=== PATIENT | female | born 1970 | race Two or more races ===

== ENCOUNTER → 2018-01-16 | Day surgery (SDC) | payer BC ==
[~2018-01-16] MED LIST: BUPROPION HCL150 M2 PO; CYMBALTA20 MG PO; FENTANYL CITRATE/PF 100MCG/2 ML INJ ONE; LIDOCAINE HCL 2% LOCAL INJ 5 ML SDV VIAL INJ ONE; MIDAZOLAM HCL 2 MG/2 ML VIAL ONE; PANTOPRAZOLE 40 MG 10ML VIAL ONE; PROPOFOL IV EMULSION 10 MG/ML 50 ML VIAL ONE; TRAZODONE HCL50 MG PO; VIT D PO
--- OUTSIDE RECORDS SUMMARY | 2018-01-16 08:50 | XMS REPORT | Clinical Summary ---
Author Author [facility] Address Unknown Phone Unavailable Care Team Providers Care Command [facility] Officer Name Role Phone Asked, Pcp PCP Unavailable Allergies No Known Allergies Current Medications Prescription Sig. Disp. Refills Start End Date Status Date nystatin-triamcinolone Apply topically 2 (two) 30 g 0 02/20/2002/19 Active (MYCOLOG II) 100,000-0.1 times a day. Apply on 17 18 unit/g-% cream affected area citalopram (CeleXA) 10 MG 0 04/25/20 Active tablet 17 ergocalciferol (VITAMIN 0 04/18/20 Active D2) 50,000 unit capsule 17 MELATONIN/PYRIDOXINE Take by mouth. Active (MELATONIN, WITH B6, ORAL) estradiol-norethindrone Place 1 patch on the skin 8 patch 11 05/20/20 05/20/20 Active acet (COMBIPATCH) 2 (two) times a week. 17 18 0.05-0.14 mg/24 hrIndications: Symptoms, such as flushing, sleeplessness, headache, lack of concentration, associated with the menopause ciprofloxacin HCl (CIPRO) Take 1 tablet (500 mg 14 tablet 0 02/23/20 03/01/20 500 MG tablet total) by mouth 2 (two) 17 17 times a day for 7 days. Active Problems No known active problems Encounters Date Type Specialty Care Team Description 06/04/2017 Telephone Obstetrics and Gynecology Felicity Aguila MD 05/20/2017 Telephone Obstetrics and Gynecology Felicity Aguila MD 05/20/2017 Orders Only Obstetrics and Gynecology Felicity Aguila Symptoms, such as [facility] flushing, sleeplessness, headache, lack of concentration, associated with the menopause (Primary Dx) 05/13/2017 Telephone Obstetrics and Gynecology Felicity Aguila MD 05/09/2017 Office Visit Obstetrics and Gynecology Felicity Aguila Insomnia, unspecified [facility] type (Primary Dx); Mood swings; Night sweats; Perimenopause 03/26/2017 [facility] Radiology Felicity Aguila Encounter [facility] 03/26/2017 [facility] Radiology Felicity Aguila Encounter [facility] 03/26/2017 [facility] Radiology Felicity Aguila Encounter [facility] 03/26/2017 Ancillary Radiology Felicity Aguila Orders [facility] 03/13/2017 [facility] Radiology Felicity Aguila Screening mammogram, Encounter [facility] encounter for 02/22/2017 Telephone Obstetrics and Gynecology Felicity Aguila MD 02/19/2017 Office Visit Obstetrics and Gynecology Felicity Aguila Encounter for [facility] gynecological examination with abnormal finding (Primary Dx); Screening mammogram, encounter for; Menstrual periods irregular; Weight gain; Vulvar itching after 01/15/2017 Family History Medical History Relation Name Comments Diabetes Father Hypertension Father Stroke Father Colon cancer Mother Relation Name Status Comments Father Mother Alive Social History Tobacco Use Types Packs/Day Years Used Date Never Smoker Alcohol Use Drinks/Week oz/Week Comments No Sex Assigned at Date Recorded Not on file Last Filed Vital Signs Vital Sign Reading Time Taken Blood Pressure 127/85 05/09/2017 11:11 AM CDT Pulse 76 05/09/2017 11:11 AM CDT Temperature 36.7 C (98 F) 05/09/2017 11:11 AM CDT Respiratory Rate - - Oxygen Saturation - - Inhaled Oxygen - - Concentration Weight 70.9 kg (156 lb 3.2 oz) 05/09/2017 11:11 AM CDT Height 165.1 cm (5' 5") 05/09/2017 11:11 AM CDT Body Mass Index 25.99 05/09/2017 11:11 AM CDT Plan of Treatment Health Maintenance Due Date Last Done Comments CERVICAL CANCER SCREENING 1993 INFLUENZA VACCINE 03/12/2018 Results * Thyroid Panel (05/09/2017 12:06 PM) Only the most recent of 2 results within the time period is included. Component Value Ref Range T3 uptake 28 22 - 35 % T4 8.6 4.5 - 12.0 mcg/dL Free T4 index 2.4 1.4 - 3.8 Specimen Performing [facility] * Thyroid stimulating hormone (05/09/2017 12:06 PM) Only the most recent of 2 results within the time period is included. Component Value Ref Range TSH 1.03 mIU/L Comment: Reference Range > or=20 Years 0.40-4.50 Ranges First trimester 0.26-2.66 Second trimester 0.55-2.73 Third trimester 0.43-2.91 Spec[facility]forming [facility] * Luteinizing hormone (05/09/2017 12:06 PM) Component Value Ref Range Luteinizing hormone 3.8 mIU/mL Comment: Reference Range Follicular Phase 1.9-12.5 Mid-Cycle Peak 8.7-76.3 Luteal Phase 0.5-16.9 Postmenopausal 10.0-54.7 Specimen Performing Laboratory [facility] * Follicle stimulating hormone (05/09/2017 12:06 PM) Only the most recent of 2 results within the time period is included. Component Value Ref Range Follicle stimulating 5.5 mIU/mL hormone Comment: Reference Range Follicular Phase 2.5-10.2 Mid-cycle Peak 3.1-17.7 Luteal Phase 1.5- 9.1 Postmenopausal 23.0-116.3 Specimen Performing [facility] * Mammo Screening w Cad Bilateral (03/13/2017 10:36 AM) Specimen Performing Laboratory [facility] [address] [place] [address] Addenda Addendum by Donavon Cross MD on 03/29/2017 3:02 PM ADDENDUM #1 Comparison is made to prior outside digital mammograms provided on CD from [facility] [address] [address] dated 02/18/2016, 01/12/2015, and 10/14/2013. There is no significant interval change from prior exams. No mammographic findings of malignancy. Recommend correlation with physical exam and annual screening mammography. BI-RADS 1: Negative Narrative PROCEDURE: MAMMO SCREENING W CAD BILATERAL Computer aided detection was utilized for the interpretation of the digital bilateral screening mammography. INDICATION:Routine screening. COMPARISON: This exam is interpreted without the benefit of prior mammograms for comparison. DENSITY: There are scattered areas of fibroglandular density. FINDINGS: There is no suspicious mass, microcalcification, or architectural distortion identified. IMPRESSION:No mammographic evidence of malignancy. RECOMMENDATION: Comparison with physical exam and annual screening mammography. If prior outside mammograms become available for comparison, an addendum will be provided. BI-RADS 1: NEGATIVE This facility is accredited by the [employer] for Mammography. A negative x-ray report should not delay biopsy if a dominant or clinically suspicious mass is present.Not all cancers are identified by x-ray. D[facility]01 Procedure Note Hm Interface, Radiology Results Incoming - 03/13/2017 11:39 AM CDT PROCEDURE: MAMMO SCREENING W CAD BILATERAL Computer aided detection was utilized for the interpretation of the digital bilateral screening mammography. INDICATION: Routine screening. COMPARISON: This exam is interpreted without the benefit of prior mammograms for comparison. DENSITY: There are scattered areas of fibroglandular density. FINDINGS: There is no suspicious mass, microcalcification, or architectural distortion identified. IMPRESSION: No mammographic evidence of malignancy. RECOMMENDATION: Comparison with physical exam and annual screening mammography. If prior outside mammograms become available for comparison, an addendum will be provided. BI-RADS 1: NEGATIVE This facility is accredited by the [employer] for Mammography. A negative x-ray report should not delay biopsy if a dominant or clinically suspicious mass is present. Not all cancers are identified by x-ray. [facility] * NON HDL CHOLESTEROL (REFLEX [facility]) (02/19/2017 11:45 AM) Component Value Ref Range Non-HDL cholesterol 144 mg/dL (calc) Comment: Target for non-HDL cholesterol is 30 mg/dL higher than LDL cholesterol target. Specimen Performing [facility] * CHOL/HDLC RATIO (REFLEX [facility]) (02/19/2017 11:45 AM) Component Value Ref Range Cholesterol/HDL ratio 2.4 < OR=5.0 (calc) Specimen Performing [facility] * LDL-CHOLESTEROL (REFLEX [facility]) (02/19/2017 11:45 AM) Component Value Ref Range LDL cholesterol 127 <130 mg/dL (calc) calculated Comment: Desirable range <100 mg/dL for patients with CHD or diabetes and <70 mg/dL for diabetic patients with known heart disease. Specimen Performing [facility] * URINALYSIS, COMPLETE, WITH REFLEX TO CULTURE (02/19/2017 11:45 AM) Component Value Ref Range Color, UA YELLOW YELLOW Appearance CLOUDY (A) CLEAR Specific gravity, urine 1.015 1.001 - 1.035 pH, urine 8.0 5.0 - 8.0 Glucose, urine NEGATIVE NEGATIVE Bilirubin, UA NEGATIVE NEGATIVE Ketones, UA NEGATIVE NEGATIVE Occult blood, urine NEGATIVE NEGATIVE Protein, UA NEGATIVE NEGATIVE Nitrite, UA NEGATIVE NEGATIVE Leukocyte esterase, UA 3+ (A) NEGATIVE WBC, UA 6-10 (A) < OR=5 /HPF RBC, UA NONE SEEN < OR=2 /HPF Squamous epithelial 0-5 < OR=5 /HPF cells, UA Bacteria, UA NONE SEEN NONE SEEN /HPF Hyaline casts, UA NONE SEEN NONE SEEN /LPF Specimen Performing [facility] * Urine culture screen result (02/19/2017 11:45 AM) Component Value Ref Range Reflex CULTURE INDICATED - RESULTS TO FOLLOW Specimen Performing [facility] * CBC with platelet and differential (02/19/2017 11:45 AM) Component Value Ref Range WBC 5.4 3.8 - 10.8 Thousand/uL RBC 4.24 3.80 - 5.10 Million/uL HGB 10.8 (L) 11.7 - 15.5 g/dL HCT 33.8 (L) 35.0 - 45.0 % MCV 79.8 (L) 80.0 - 100.0 fL MCH 25.5 (L) 27.0 - 33.0 pg MCHC 31.9 (L) 32.0 - 36.0 g/dL RDW 16.4 (H) 11.0 - 15.0 % Platelet count 164 140 - 400 Thousand/uL MPV 10.6 7.5 - 12.5 fL Neutrophils, absolute 3,532 1,500 - 7,800 cells/uL Lymphocytes, absolute 1,393 850 - 3,900 cells/uL Monocytes, absolute 410 200 - 950 cells/uL Eosinophils, absolute 49 15 - 500 cells/uL Basophils, absolute 16 0 - 200 cells/uL Neutrophils 65.4 % Lymphocytes 25.8 % Monocytes 7.6 % Eosinophils 0.9 % Basophils + RC 0.3 % Specimen Performing Laboratory [facility] * Urine culture (02/19/2017 11:45 AM) Component Value Ref Range Urine culture SEE NOTE (A) Comment: CULTURE, URINE, ROUTINE MICRO NUMBER: [id number] TEST STATUS: FINAL SPECIMEN SOURCE: URINE SPECIMEN QUALITY: ADEQUATE RESULT: 10,000-50,000 CFU/mL of Enterococcus faecalis COMMENT: Additional organism(s) less than 10,000 CFU/mL isolated. These organisms, commonly found on external and internal genitalia, are considered colonizers. No further testing performed. E.faecalis INT MORE AMPICILLIN S <2 CIPROFLOXACIN S <1 DAPTOMYCIN S 2 LEVOFLOXACIN S <1 NITROFURANTOIN S <32 VANCOMYCIN S 4 S=Susceptible I=Intermediate R=Resistant *=Not Tested NR=Not Reported NN=See Therapy Comments Specimen Performing [facility] * Triglycerides (02/19/2017 11:45 AM) Component Value Ref Range Triglycerides 86 <150 mg/dL Specimen Performing [facility] * HDL cholesterol (02/19/2017 11:45 AM) Component Value Ref Range HDL cholesterol 103 > OR=46 mg/dL Specimen Performing [facility] * Cholesterol (02/19/2017 11:45 AM) Component Value Ref Range Cholesterol, total 247 (H) 125 - 200 mg/dL Specimen Performing [facility] * Comprehensive metabolic panel (02/19/2017 11:45 AM) Component Value Ref Range Glucose 98 65 - 99 mg/dL Comment: Fasting reference interval BUN, whole blood 9 7 - 25 mg/dL Creatinine 0.47 (L) 0.50 - 1.10 mg/dL EGFR Non-Afr. Chinese 120 > OR=60 mL/min/1.73m2 EGFR 139 > OR=60 mL/min/1.73m2 BUN/creatinine ratio 19 6 - 22 (calc) Sodium 139 135 - 146 mmol/L Potassium 4.1 3.5 - 5.3 mmol/L Chloride 104 98 - 110 mmol/L CO2 29 20 - 31 mmol/L Calcium 8.9 8.6 - 10.2 mg/dL Protein 7.1 6.1 - 8.1 g/dL Albumin, S 4.2 3.6 - 5.1 g/dL Globulin, total 2.9 1.9 - 3.7 g/dL (calc) Albumin/globulin ratio 1.4 1.0 - 2.5 (calc) Total bilirubin 0.4 0.2 - 1.2 mg/dL Alkaline phosphatase 42 33 - 115 U/L AST 14 10 - 30 U/L ALT 13 6 - 29 U/L Specimen Performing Laboratory [facility] * HPV mRNA E6/E7 (02/19/2017 11:41 AM) Component Value Ref Range HPV mRNA e6/e7 Not Detected Not Detected Comment: This test was performed using the APTIMA HPV Assay ([employer] This assay detects E6/E7 viral messenger RNA (mRNA) from 14 high-risk HPV types (16,18,31,33,35,39,45,51,52,56,58,59,66,68). Specimen Performing Laboratory [facility] * THINPREP TIS PAP (02/19/2017 11:41 AM) Component Value Ref Range Clinical information None given Date of last menstrual 20,170,619 period Prev. pap: NONE GIVEN Prev. bx: NONE GIVEN Source Cervix Statement of adequacy Comment: Satisfactory for evaluation. Endocervical/transformation zone component present. Interpretation/result: Comment: Negative for intraepithelial lesion or malignancy. Comment Comment: This Pap test has been evaluated with computer assisted technology. Clinical Applications Manager Comment: [place], CT (ASCP) CT screening location: [address], [facility] [address] Specimen Performing Laboratory [facility] after 01/15/2017 Insurance Payer Benefit Subscriber ID Type Phone Address Plan / Group BCBS BCBS xxxxxxxxxxxx PPO CHOICE PPO/[place] [address]
--- NOTE | 2018-01-16 13:28 | Operative Report ---
DATE OF PROCEDURE: January 16, 2018 REFERRING PHYSICIAN: Dr. Rothman PROCEDURES PERFORMED 1. Esophagogastroduodenoscopy with biopsies. 2. Colonoscopy with polypectomy. INDICATIONS FOR EGD: Acid reflux. INDICATIONS FOR COLONOSCOPY: Colorectal cancer screening and mother with colon cancer. MEDICATION: Patient was done under MAC. Please see anesthesiologist's note. PROCEDURE: With the patient in the left lateral decubitus position, the flexible fiberoptic Olympus gastroscope was introduced into the esophagus under direct visualization without any difficulty. The esophagus appeared to be within normal limits. The scope was then advanced with ease into the stomach traversing a small sliding hiatal hernia. Mucosa overlying the antrum revealed some patchy erythema and mild to moderate edema, and biopsies were obtained and sent to stain for H. pylori. Mucosa overlying the body was somewhat atrophic and multiple biopsies were obtained to rule out atrophic gastritis. Pylorus appeared to be of normal contour and shape. It was intubated with ease. The scope was advanced all the way to the 2nd portion of the duodenum. The scope was then withdrawn slowly. Mucosa overlying the proximal 2nd portion and the duodenal bulb appeared to be within normal limits. The scope was then withdrawn back into the stomach and retroflexed. The mucosa overlying the fundus and the cardia appeared to be within normal limits. The scope was then straightened out. It was subsequently withdrawn. Patient tolerated the procedure well. IMPRESSION 1. Normal esophagus. 2. Small sliding hiatal hernia. 3. Gastritis, antrum, biopsied. Biopsies sent to stain for Helicobacter pylori. 4. Rule out atrophic gastritis, body. PLAN: Follow up histology. Initiate Protonix 40 mg 1 p.o. a.c. b.i.d. Patient was then turned around. After adequate lubrication of the anal canal, a flexible fiberoptic Olympus colonoscope was inserted into the rectum with ease and advanced all the way to the cecum. Mucosa overlying the cecum appeared to be within normal limits. One polyp was hot biopsied from the ascending colon. The transverse, descending, sigmoid, and rectum appeared to be within normal limits. The scope was then retroflexed into the distal rectum and small internal hemorrhoids were noted, none of which was actively bleeding. The scope was then straightened out. It was subsequently withdrawn. Patient tolerated the procedure well. IMPRESSION 1. Ascending colon polyp, hot biopsied. 2. Internal hemorrhoids, none actively bleeding. PLAN: Follow up histology. Initiate high-fiber and low-fat diet. Initiate high-fiber supplement. Patient might benefit from a followup colonoscopy in 3-5 years. Job#: [id number] [place] cc:MAISHA ROTHMAN MD
== END | disposition home or self-care (01) ==
LOC: OR 08:48
PROVIDERS: ATTEND Internal Medicine Gastroenterology
DX: Z12.11 Encounter for screening for malignant neoplasm of colon (principal); D12.2 Benign neoplasm of ascending colon; K29.50 Unspecified chronic gastritis without bleeding; K21.9 Gastro-esophageal reflux disease without esophagitis; K44.9 Diaphragmatic hernia without obstruction or gangrene; K31.89 Other diseases of stomach and duodenum; K64.8 Other hemorrhoids; F32.9 Major depressive disorder, single episode, unspecified; F41.9 Anxiety disorder, unspecified; Z80.0 Family history of malignant neoplasm of digestive organs
CPT/HCPCS: 43239; 45384; 81025; J2001; J2250

== ENCOUNTER → 2021-11-11 | Day surgery (SDC) | payer BC ==
[~2021-11-11] MED LIST changes: +COTEMPLA XR-O17.3 MG PO; +CYMBALTA30 MG PO; -PANTOPRAZOLE 40 MG 10ML VIAL ONE; -PROPOFOL IV EMULSION 10 MG/ML 50 ML VIAL ONE; +VRAYLAR1.5 MG PO
[2021-11-11 17:30] VITALS: BP 124/82
[2021-11-11 17:56] LABS: PROTHROMBIN TIME 14.1 seconds (11.9-14.5)
[2021-11-11 17:57] LABS: PARTIAL THROMBOPLASTIN TIME 29.7 seconds (23.8-35.5)
[2021-11-15 05:13] LABS: ENDOMYSIAL ANTIBODIES, IGA Negative (Negative)
== END | disposition home or self-care (01) ==
LOC: OR 12:36
PROVIDERS: ATTEND Internal Medicine Gastroenterology
DX: K21.9 Gastro-esophageal reflux disease without esophagitis (principal); Z86.010 Personal history of colon polyps; K31.7 Polyp of stomach and duodenum; K29.50 Unspecified chronic gastritis without bleeding; K31.89 Other diseases of stomach and duodenum; K59.00 Constipation, unspecified; K64.8 Other hemorrhoids; E78.5 Hyperlipidemia, unspecified; F41.9 Anxiety disorder, unspecified; F32.A Depression, unspecified; Z01.812 Encounter for preprocedural laboratory examination; Z20.822 Contact with and (suspected) exposure to COVID-19; Z79.899 Other long term (current) drug therapy; Z80.0 Family history of malignant neoplasm of digestive organs
CPT/HCPCS: 36415; 43239; 45378; 81025; 82607; 82784; 83516; 85610; 85730; 86256; C9113; J2001; J2250; J3010; U0002; 43255

== ENCOUNTER → 2025-05-01 | Day surgery (SDC) | payer BC ==
[~2025-05-01] MED LIST changes: +BUPROPION XL150 MG PO; +GLUCAGON FOR INJ 1 MG VIAL ONE; +HYOSCYAMINE SULFATE 0.5 MG/ML INJ ONE; +ONDANSETRON HCL INJ 2MG/ML 2ML 2 MG/ML VIAL ONE; +PROPOFOL IV EMULSION 50 ML IV ONE
[2025-05-01] MEDS: LACTATED RINGER'S 1,000 ML ONE (09:40)
[2025-05-01 12:35] VITALS: BP 132/87; PULSE 97; RESP 18; TEMP 97; O2SAT 98
== END | disposition home or self-care (01) ==
LOC: OR 08:57
PROVIDERS: ATTEND Internal Medicine Gastroenterology
DX: Z12.11 Encounter for screening for malignant neoplasm of colon (principal); D12.2 Benign neoplasm of ascending colon; K29.40 Chronic atrophic gastritis without bleeding; K31.A15 Gastric intestinal metaplasia without dysplasia, involving multiple sites; K20.90 Esophagitis, unspecified without bleeding; K44.9 Diaphragmatic hernia without obstruction or gangrene; K57.30 Diverticulosis of large intestine without perforation or abscess without bleeding; K64.8 Other hemorrhoids; Z71.89 Other specified counseling; Z01.810 Encounter for preprocedural cardiovascular examination; Z79.899 Other long term (current) drug therapy; Z68.35 Body mass index [BMI] 35.0-35.9, adult; Z71.3 Dietary counseling and surveillance; Z80.0 Family history of malignant neoplasm of digestive organs
CPT/HCPCS: 43239; 45385; 81025; 93005; J1610; J1980; J2003; J2250; J2405; J2470; J2704; J3010; J7121